=== PATIENT | male | born 1955 | race Caucasian/White ===

== ENCOUNTER 2023-03-02 08:17 | Day surgery (SDC) | payer MEDICARE, SELFPAY ==
[2023-03-02] VITALS (8 sets, daily range): BP systolic 106–147; BP diastolic 68–89; PULSE 76–86; RESP 15–18; TEMP 36.5–36.8; O2SAT 93–98; BMI 27.0
[2023-03-02] MEDS: Lactated Ringers 1,000 ML 80 ML IV (08:59)
--- NOTE | 2023-03-02 09:17 | ANES.PREOP_ITS ---
General Info Date of Service Date Performed: 03/02/23 Height: 5 ft 7 in Weight: 78.3 kg Body Mass Index (BMI): 27.0 Surgical Procedure: Operation Date: 03/02/23 09:55 Proposed Procedure Side Surgeon p Micro Laryngoscopy with bilateral vocal cord biopsy Maurice Narvaez MD Meds Allergies and Home Medications Allergies Allergy/AdvReac Type Severity Reaction Status Date / Time atorvastatin Allergy Unknown Verified 03/02/23 08:48 Home Medication Medication Instructions Recorded betamethasone, augmented 0.05 % 15 g topical PRN PRN 08/05/16 topical ointment ibuprofen 200 mg capsule 200 mg PO PRN PRN 08/05/16 omeprazole 40 mg capsule,delayed 40 mg PO DAILY 08/05/16 release aspirin 81 mg chewable tablet 81 mg PO DAILY 08/06/16 (Aspirin Low-Strength) ibuprofen 600 mg tablet 600 mg PO Q6H #40 tabs 08/08/16 albuterol sulfate 90 mcg/actuation 2 puff inhalation Q3H PRN 11/25/22 aerosol inhaler ammonium lactate 12 % topical cream 1 applic topical BID 11/25/22 dexcom transmitter See Rx Instructions .Route 11/25/22 DIRECTED dulaglutide 3 mg/0.5 mL 3 mg subcut QWEEK 11/25/22 subcutaneous pen injector (Trulicity) hydrocodone 7.5 mg-acetaminophen 1 tab PO Q4H PRN 12/01/22 325 mg tablet ([place]) insulin glargine 100 unit/mL (3 35 unit subcut HS 12/01/22 mL) subcutaneous pen (Lantus Solostar U-100 Insulin) Current Visit Medications: Current Medications Generic Name Dose Route Start Last Admin Trade Name Freq PRN Reason Stop Dose Admin Ringer's Solution 1,000 mls @ 80 mls/hr 03/02/23 06:00 03/02/23 08:59 IV 03/29/23 23:59 80 mls/hr INFUSION JAYESH Administration Tranexamic Acid 1,000 mg/ 60 mls @ 360 mls/hr 03/02/23 06:00 Sodium Chloride IVPB 03/02/23 18:00 PREOP JAYESH IV Miscellaneous Supplies 1 each 03/02/23 06:00 Iv Access IV 03/29/23 23:59 DIRECTED JAYESH Sodium Chloride 0 ml 03/02/23 06:00 Normal Saline Flush 10 Ml Syr IV 03/29/23 23:59 PRN PRN Sodium Chloride 0 ml 03/02/23 06:00 Normal Saline 10 Ml Vial IJ 03/29/23 23:59 DIRECTED PRN Sterile Water 0 ml 03/02/23 06:00 Water,Injection,Sterile 10 Ml Vial IJ 03/29/23 23:59 DIRECTED PRN PFSH Active Problems Active Problems: Problem Status Onset Code Emphysema lung J43.9 Hoarseness of voice R49.0 Weakness of voice R49.8 Pulmonary nodules R91.8 Type 2 diabetes mellitus E11.9 Strain of shoulder S46.919A Shoulder joint pain M25.519 Secondary polycythemia D75.1 Right upper quadrant pain R10.11 Paronychia of finger L03.019 Pain in right knee M25.561 Pain, joint, shoulder, left M25.512 Pain in right foot M79.671 Olecranon bursitis M70.20 Nicotine dependence F17.200 Myalgia M79.10 Lesion of ulnar nerve G56.20 Insomnia G47.00 Hyperplasia of prostate N40.0 Hyperlipidemia E78.5 GERD with esophagitis K21.00 Essential hypertension I10 Dyslipidemia due to type 2 diabetes mellitus E11.69, E78.5 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 Degeneration, intervertebral disc, cervical M50.30 Constipation K59.00 Chronic hoarseness R49.0 Cervical radiculopathy M54.12 Carpal tunnel syndrome, bilateral G56.03 Atopic dermatitis L20.9 Atherosclerosis I70.90 Arthritis M19.90 Allergic rhinitis J30.9 Hallux valgus (acquired) M20.10 Medical History Medical History (Updated 03/02/23 @ 08:26 by Flaquita Stanton MD) Chronic obstructive lung disease Bunion Acquired hallux valgus of right foot Nonspecific abdominal symptom Cellulitis of right upper limb Surgical History Surgical History Hx of hammer toe correction Hx of arthroscopy of shoulder Hx of cataract surgery History of colonoscopy Hx laparoscopic cholecystectomy History of carpal tunnel release Hammer toe Right 5th hammer toe surgery. Tobacco Smoking/Tobacco Use Status: Current every day Tobacco Type: cigarettes Alcohol Alcohol Intake: never Substance Use Substance use: Never Substance use type: does not use Vital Signs and Lab Results Vital Signs Most Recent Vital Signs in EMR: Most Recent Vital Signs Temp Pulse Resp BP Pulse Ox 36.5 C 78 16 106/82 96 03/02/23 08:36 03/02/23 08:36 03/02/23 08:36 03/02/23 08:36 03/02/23 08:36 Lab Results Blood Type / Crossmatch: No Data to Display Complete Blood Count: No Data to Display Complete Metabolic Panel: No Data to Display Liver Function Panel: No Data to Display Coagulation Panel: No Data to Display Cardiac Panel: No Data to Display Arterial Blood Gas: No Data to Display Venous Blood Gas: No Data to Display Pancreas Panel: No Data to Display Thyroid Panel: No Data to Display Infectious Disease: No Data to Display Blood Cultures: No Data to Display Toxicology Panel: No Data to Display Anesthesia Assessment and Plan Anesthesia History Personal History: No History of Anesthesia Complications Family History: No Family History of Anesthesia Complications Exercise Tolerance Exercise Tolerance: Metabolic Equivalents>4 Pertinent Negatives Pertinent Negatives: No Symptoms of GERD, No Major Cardiovascular Symptoms or Complaints and No Major Pulmonary Symptoms or Complaints Cardiac & Pulmonary Exam Cardiac Exam: Normal S1/S2 Heart Sounds Pulmonary Exam: Wheezing Present Implantable Cardiac Device Does patient have a Pacemaker or an ICD?: No Airway Exam Known Difficult Airway: No Mallampati Class: 2 Mouth Opening: Normal (> 3cm) Thyromental Distance: Greater than 3 cm Neck Range of Motion: Full ROM Neck Circumference: Normal Teeth Condition: Edentulous ASA Classification ASA Score: ASA 3 Emergency Case?: No NPO Status NPO Status: NPO Clears >2 hours, Solids >8 hours Anesthesia Plan Resuscitation Status: Full Code Anesthesia Technique: General Anesthesia Airway Planned: Endotracheal Tube Monitors Used: Standard Monitors
--- NOTE | 2023-03-02 09:24 | PDOC.DSDIS_ITS ---
Date of service: 03/02/23 Time of Service: 09:24 Discharge Plan Disposition Patient Disposition: Home Condition: Good Discharge Details Reason For Visit: Microlaryngoscopy with biopsy Attending Provider: Maurice Narvaez Primary Care Provider: Nicolás Escobar [place] Meds and New Rx's Prescriptions: No Action hydrocodone-acetaminophen [[place]] 7.5-325 mg tablet 1 tab PO Q4H PRN albuterol sulfate 90 mcg/actuation HFA aerosol inhaler 2 puff inhalation Q3H PRN ammonium lactate 12 % cream 1 applic topical BID dexcom transmitter See Rx Instructions .ROUTE DIRECTED Rx Instructions: as directed; Trulicity 3 mg/0.5 mL pen injector 3 mg subcut QWEEK ibuprofen 200 MG capsule 200 mg PO PRN PRN omeprazole 40 MG capsule,delayed release(DR/EC) 40 mg PO DAILY betamethasone, augmented 15 GM ointment 15 g Topical PRN PRN aspirin [Aspirin Low-Strength] 81 MG tablet,chewable 81 mg PO DAILY ibuprofen 600 MG tablet 600 mg PO Q6H Qty: 40 1RF insulin glargine [Lantus Solostar U-100 Insulin] 100 unit/mL (3 mL) insulin pen 35 unit subcut HS Discharge Instructions Additional Instructions: My cell phone number is [phone]. Please call with any questions or concerns. If you feel it is an emergency and you are unable to reach me, please proceed to the emergency room or call 911. You may use ibuprofen or Tylenol for any discomfort. You should not drive or operate any dangerous equipment for at least 2 days. You should not smoke. You should avoid shouting or whispering. He should maintain good hydration. You may resume your preoperative diet. You should check your blood sugars routinely and if they are not well controlled, call your primary care provider or whomever is managing your diabetes. You are to call my office if you do not hear from me within 7 days with regard to pathology results. My office number is [phone]. Follow-up will be determined based on what the pathology reveals. Discharge Orders Discharge Orders: Discharge Order (Routine); Ordered 03/02/23 Ordered By: Maurice Narvaez
--- NOTE | 2023-03-02 09:28 | W.PM.OP ---
Date of service: 03/02/23 Time of Service: 10:12 Operative Note Operative Note DATE OF PROCEDURE: 03/02/23 PRE-OP DIAGNOSIS: Hoarseness, vocal cord mass-bilateral POST-OP DIAGNOSIS: same PROCEDURE: Microlaryngoscopy with biopsy-bilateral SURGEON: Maurice Narvaez Refer to Anesthesia Record PATHOLOGY: other (Left vocal cord biopsy, right vocal cord biopsy, sent separately) COMPLICATIONS: None Patient was transported to: PACU Indications: Patient with the above problems. Options were explained to family regarding further management. He and his partner elected to undergo the above procedure. Consent was filled out and signed prior to surgery. H&P was reviewed. There have been no changes. He had received medical clearance from his primary care provider. Findings: Left vocal cord mass not extending to the anterior commissure, but extending into the left ventricle and into the subglottis. This is friable, and nonobstructive. There is no ulceration. There is no obvious necrosis. Right vocal cord mass, irregular, friable, not extending into the ventricle, but it does extend into the subglottic space. Nonobstructive. Not extending to the anterior commissure, no necrosis. No other masses or lesions noted. Procedure Description: After obtaining an adequate level of general endotracheal anesthesia the patient was positioned in supine position and prepped and draped in appropriate fashion. A Holinger laryngoscope was carefully introduced in the oral cavity advanced into the larynx to afford a view of the glottis. This was then placed in suspension and an operating microscope with a 400 mm lens was moved into position. Under magnification, biopsies were removed bilaterally from both vocal cord masses. The anterior commissure was not damaged. Once this was accomplished, the laryngoscope was withdrawn, with no obvious masses or lesions noted elsewhere within the pharynx, tongue base, or larynx. The patient was then awakened and extubated by anesthesia and taken to recovery room in stable condition. I was present for the throughout the entire case
--- NOTE | 2023-03-02 10:02 | VOCCOR_PTH ---
PATIENT: Jaden Alba LOC: [facility] U#:[id number] AGE/SX: 67/M ROOM: RE03/02/[address]: Maurice Narvaez MD : [id number] BED: DIS: 03/02/2023 SPEC #: [id number] RECD: 03/02/23 12:48 STATUS: JUDIE REQ #: [id number] JOZEF: 03/02/23 10:[address]: Maurice Narvaez DEPT: Surgical Specimen RECD BY: Zuleyma Jones ENTERED: 03/02/23 12:48 SP TYPE: VOCCOR OTHR DR: Nicolás Escobar Tissues: 1 - VOCAL CORD 2 - VOCAL CORD Procedures: GROSS AND MICRO LEVEL 4 Comments: [id number]
--- NOTE | 2023-03-02 10:46 | W.ANESPOSTOP ---
Postoperative Evaluation Date, Time and Location Date Performed: 03/02/23 Time Performed: 10:46 Patient Location: Day Surgery Unit Vital Signs Most Recent Imported Vital Signs: Most Recent Vital Signs Temp Pulse Resp BP Pulse Ox 36.8 C 86 15 147/72 H 95 03/02/23 10:21 03/02/23 10:31 03/02/23 10:31 03/02/23 10:31 03/02/23 10:31 Pain Score Most Recent Pain Score: Most Recent Pain Score Pain Level 0 03/02/23 10:31 Assessment Mental Status: Awake (Alert & Oriented to Patient Baseline) Airway and Respiratory Function: Patent airway with normal (patient baseline) respiratory exam Cardiovascular Function: Hemodynamically Stable Hydration Status: Adequately Hydrated Nausea & Vomiting: No Nausea or Vomiting Pain: Pt. Denies Any Pain Peripheral Nerve Block: Patient did not receive a nerve block
== END 2023-03-02 11:40 | disposition home or self-care (01) ==
PROVIDERS: PCP Neuromusculoskeletal Medicine & OMM; Visit Provider Otolaryngology
PROC: 0CJS8ZZ Inspection of Larynx, Via Natural or Artificial Opening Endoscopic (ICD-10-PCS; CPT 31575; principal; 2023-03-02 09:45)
DX: R49.0 Dysphonia (principal); C32.0 Malignant neoplasm of glottis
CPT/HCPCS: 31536; 88305; J1100; J2001; J2405; J2704; J3010

== ENCOUNTER → 2023-03-03 09:31 | Outpatient (BNVA) | payer MEDICARE, SELFPAY | PROVIDERS: PCP Neuromusculoskeletal Medicine & OMM; Referring Provider Neuromusculoskeletal Medicine & OMM; Visit Provider Student in an Organized Health Care Education/Training Program ==

== ENCOUNTER → 2023-03-10 13:11 | Outpatient (BNVA) | payer MEDICARE, SELFPAY | PROVIDERS: PCP Neuromusculoskeletal Medicine & OMM; Referring Provider Neuromusculoskeletal Medicine & OMM; Visit Provider Student in an Organized Health Care Education/Training Program | DX: R91.8 Other nonspecific abnormal finding of lung field (principal); F17.210 Nicotine dependence, cigarettes, uncomplicated; J43.9 Emphysema, unspecified; Z79.899 Other long term (current) drug therapy; C32.9 Malignant neoplasm of larynx, unspecified | CPT/HCPCS: 99214 ==

== ENCOUNTER 2023-04-27 11:50 | Outpatient (CLI) | payer MEDICARE, SELFPAY ==
[2023-04-27 11:09] LABS: Abs Immature Grans 0.02 10^3/uL (0.0-0.06); Absolute Basophil Count 0.08 10^3/uL (0.0-0.2); Absolute Eosinophil Count 0.39 10^3/uL (0.0-0.7); Absolute Lymphocyte Count 1.66 10^3/uL (1.2-3.4); Absolute Monocyte Count 0.47 10^3/uL (0.1-0.8); Absolute Neutrophil Count 3.75 10^3/uL (1.2-6.7); Basophils % 1.3; Eosinophils % 6.1; HCT 41.4 % (40.0-50.0); HGB 13.4 g/dL (13.5-17.5); Immature Grans % 0.3; Lymphocytes % 26.1; MCH 28.2 pg (27.0-33.0); MCHC 32.4 % (32.0-36.0); MCV 87 fL (80-95); MPV 9.2 fL (8.0-11.0); Monocytes % 7.4; Neutrophils % 58.8; Platelet Count 286 10^3/uL (130-400); RBC 4.75 10^6/uL (4.36-5.78); RDW 13.8 % (11.8-14.1); RDW-SD 44.1 fL; WBC 6.37 10^3/uL (4.4-10.8)
[2023-04-27 11:33] LABS: ALT 20 U/L (16-63); AST 13 U/L (15-37); Albumin 3.5 g/dL (3.4-5.0); Alkaline Phosphatase 64 U/L (46-116); Anion Gap 8.6 mmol/L (3-11); BUN 21 mg/dL (7-18); Bilirubin, Total 0.3 mg/dL (0.2-1.0); CO2 28.4 mmol/L (21.0-32.0); CREATININE 0.9 mg/dL (0.70-1.30); Chloride 102 mmol/L (98-107); Estimated GFR 94.19 (mL/min/1.73m2); Glucose 99 mg/dL (74-106); Potassium 4.2 mmol/L (3.5-5.1); Sodium 139 mmol/L (136-145); Total Protein 7.4 g/dL (6.4-8.2)
== END 2023-04-27 11:51 | disposition home or self-care (01) ==
LOC: LBO 11:50
PROVIDERS: PCP Neuromusculoskeletal Medicine & OMM; Visit Provider Nurse Practitioner
DX: C32.9 Malignant neoplasm of larynx, unspecified (principal)
CPT/HCPCS: 36415; 80053; 83735; 85025

== ENCOUNTER 2023-06-08 03:06 | Outpatient (RCR) | payer MEDICARE, SELFPAY ==
[2023-05-12] MEDS: Normal Saline Flush 10 ML SYR IVP (10:34)
[2023-05-12 10:43] LABS: Abs Immature Grans 0.03 10^3/uL (0.0-0.06); Absolute Basophil Count 0.06 10^3/uL (0.0-0.2); Absolute Lymphocyte Count 1.24 10^3/uL (1.2-3.4); Absolute Monocyte Count 0.55 10^3/uL (0.1-0.8); Absolute Neutrophil Count 5.58 10^3/uL (1.2-6.7); Basophils % 0.8; Eosinophils % 6.3; HCT 38.1 % (40.0-50.0); HGB 12.2 g/dL (13.5-17.5); Immature Grans % 0.4; Lymphocytes % 15.6; MCH 28.4 pg (27.0-33.0); MCV 89 fL (80-95); MPV 9.5 fL (8.0-11.0); Monocytes % 6.9; Platelet Count 352 10^3/uL (130-400); RDW 13.7 % (11.8-14.1); WBC 7.96 10^3/uL (4.4-10.8)
[2023-05-12 11:08] LABS: ALT 18 U/L (16-63); AST 11 U/L (15-37); Albumin 3.1 g/dL (3.4-5.0); Alkaline Phosphatase 77 U/L (46-116); Anion Gap 6.5 mmol/L (3-11); BUN 25 mg/dL (7-18); Bilirubin, Total 0.3 mg/dL (0.2-1.0); CO2 30.5 mmol/L (21.0-32.0); CREATININE 0.9 mg/dL (0.70-1.30); Calcium 9.3 mg/dL (8.5-10.1); Chloride 100 mmol/L (98-107); Estimated GFR 94.19 (mL/min/1.73m2); Glucose 210 mg/dL (74-106); Magnesium 1.7 mg/dL (1.8-2.4); Potassium 4.5 mmol/L (3.5-5.1); Sodium 137 mmol/L (136-145); Total Protein 7.5 g/dL (6.4-8.2)
[2023-05-18] MEDS: Normal Saline Flush 10 ML SYR IVP (09:28)
[2023-05-18 09:53] LABS: Abs Immature Grans 0.03 10^3/uL (0.0-0.06); Absolute Basophil Count 0.05 10^3/uL (0.0-0.2); Absolute Eosinophil Count 0.39 10^3/uL (0.0-0.7); Absolute Lymphocyte Count 0.81 10^3/uL (1.2-3.4); Absolute Monocyte Count 0.51 10^3/uL (0.1-0.8); Absolute Neutrophil Count 6.72 10^3/uL (1.2-6.7); Basophils % 0.6; Eosinophils % 4.6; HCT 37.4 % (40.0-50.0); HGB 12.1 g/dL (13.5-17.5); Immature Grans % 0.4; Lymphocytes % 9.5; MCH 28.6 pg (27.0-33.0); MCHC 32.4 % (32.0-36.0); MCV 88 fL (80-95); Neutrophils % 78.9; Platelet Count 342 10^3/uL (130-400); RBC 4.23 10^6/uL (4.36-5.78); RDW 13.6 % (11.8-14.1); RDW-SD 44.1 fL; WBC 8.51 10^3/uL (4.4-10.8)
[2023-05-18 10:05] LABS: ALT 16 U/L (16-63); AST 10 U/L (15-37); Albumin 3.1 g/dL (3.4-5.0); Alkaline Phosphatase 84 U/L (46-116); Anion Gap 4.3 mmol/L (3-11); BUN 24 mg/dL (7-18); Bilirubin, Total 0.4 mg/dL (0.2-1.0); CO2 29.7 mmol/L (21.0-32.0); CREATININE 0.9 mg/dL (0.70-1.30); Calcium 8.6 mg/dL (8.5-10.1); Chloride 101 mmol/L (98-107); Estimated GFR 94.19 (mL/min/1.73m2); Glucose 170 mg/dL (74-106); Magnesium 1.7 mg/dL (1.8-2.4); Potassium 4.8 mmol/L (3.5-5.1); Sodium 135 mmol/L (136-145); Total Protein 7.2 g/dL (6.4-8.2)
[2023-05-25] MEDS: Normal Saline Flush 10 ML SYR IVP (09:49)
[2023-05-25 10:02] LABS: Abs Immature Grans 0.01 10^3/uL (0.0-0.06); Absolute Basophil Count 0.05 10^3/uL (0.0-0.2); Absolute Eosinophil Count 0.37 10^3/uL (0.0-0.7); Absolute Lymphocyte Count 0.79 10^3/uL (1.2-3.4); Absolute Monocyte Count 0.44 10^3/uL (0.1-0.8); Absolute Neutrophil Count 2.98 10^3/uL (1.2-6.7); Basophils % 1.1; HCT 34.4 % (40.0-50.0); HGB 11.4 g/dL (13.5-17.5); Immature Grans % 0.2; MCH 29.3 pg (27.0-33.0); MCHC 33.1 % (32.0-36.0); MCV 88 fL (80-95); MPV 9.2 fL (8.0-11.0); Monocytes % 9.5; Neutrophils % 64.2; Platelet Count 270 10^3/uL (130-400); RBC 3.89 10^6/uL (4.36-5.78); RDW 14.1 % (11.8-14.1); RDW-SD 44.7 fL; WBC 4.64 10^3/uL (4.4-10.8)
[2023-05-25 11:01] LABS: ALT 17 U/L (16-63); AST 11 U/L (15-37); Albumin 3.1 g/dL (3.4-5.0); Alkaline Phosphatase 79 U/L (46-116); Anion Gap 6.5 mmol/L (3-11); BUN 19 mg/dL (7-18); Bilirubin, Total 0.3 mg/dL (0.2-1.0); CO2 30.5 mmol/L (21.0-32.0); CREATININE 0.9 mg/dL (0.70-1.30); Calcium 9.1 mg/dL (8.5-10.1); Chloride 102 mmol/L (98-107); Estimated GFR 94.19 (mL/min/1.73m2); Glucose 146 mg/dL (74-106); Magnesium 1.7 mg/dL (1.8-2.4); Potassium 4.6 mmol/L (3.5-5.1); Sodium 139 mmol/L (136-145); Total Protein 7.1 g/dL (6.4-8.2)
[2023-06-01] MEDS: Normal Saline Flush 10 ML SYR IVP (07:54)
[2023-06-01 08:20] LABS: Abs Immature Grans 0.01 10^3/uL (0.0-0.06); Absolute Basophil Count 0.03 10^3/uL (0.0-0.2); Absolute Eosinophil Count 0.14 10^3/uL (0.0-0.7); Absolute Lymphocyte Count 0.56 10^3/uL (1.2-3.4); Absolute Monocyte Count 0.39 10^3/uL (0.1-0.8); Basophils % 0.9; Eosinophils % 4.2; HCT 32.5 % (40.0-50.0); HGB 10.9 g/dL (13.5-17.5); Immature Grans % 0.3; Lymphocytes % 16.8; MCH 29.4 pg (27.0-33.0); MCHC 33.5 % (32.0-36.0); MCV 88 fL (80-95); MPV 9.2 fL (8.0-11.0); Monocytes % 11.7; Neutrophils % 66.1; Platelet Count 194 10^3/uL (130-400); RBC 3.71 10^6/uL (4.36-5.78); RDW 14.5 % (11.8-14.1); RDW-SD 44.8 fL; WBC 3.33 10^3/uL (4.4-10.8)
[2023-06-01 08:36] LABS: ALT 13 U/L (16-63); AST 11 U/L (15-37); Albumin 3.1 g/dL (3.4-5.0); Alkaline Phosphatase 77 U/L (46-116); Anion Gap 7.3 mmol/L (3-11); BUN 21 mg/dL (7-18); Bilirubin, Total 0.4 mg/dL (0.2-1.0); CO2 28.7 mmol/L (21.0-32.0); CREATININE 0.9 mg/dL (0.70-1.30); Calcium 8.7 mg/dL (8.5-10.1); Chloride 101 mmol/L (98-107); Estimated GFR 94.19 (mL/min/1.73m2); Glucose 183 mg/dL (74-106); Magnesium 1.5 mg/dL (1.8-2.4); Potassium 4.3 mmol/L (3.5-5.1); Sodium 137 mmol/L (136-145)
[2023-06-08] MEDS: Normal Saline Flush 10 ML SYR IVP (08:01)
[2023-06-08 08:17] LABS: Abs Immature Grans 0.01 10^3/uL (0.0-0.06); Absolute Basophil Count 0.02 10^3/uL (0.0-0.2); Absolute Eosinophil Count 0.06 10^3/uL (0.0-0.7); Absolute Lymphocyte Count 0.32 10^3/uL (1.2-3.4); Absolute Neutrophil Count 1.38 10^3/uL (1.2-6.7); Basophils % 0.9; Eosinophils % 2.7; HGB 10.5 g/dL (13.5-17.5); Immature Grans % 0.5; Lymphocytes % 14.6; MCH 29.7 pg (27.0-33.0); MCHC 33.9 % (32.0-36.0); MCV 88 fL (80-95); Monocytes % 18.3; Platelet Count 223 10^3/uL (130-400); RBC 3.54 10^6/uL (4.36-5.78); RDW 14.6 % (11.8-14.1); RDW-SD 45.4 fL; WBC 2.19 10^3/uL (4.4-10.8)
[2023-06-08 08:41] LABS: ALT 15 U/L (16-63); AST 11 U/L (15-37); Albumin 2.9 g/dL (3.4-5.0); Alkaline Phosphatase 78 U/L (46-116); Anion Gap 7.7 mmol/L (3-11); BUN 24 mg/dL (7-18); Bilirubin, Total 0.5 mg/dL (0.2-1.0); CO2 27.3 mmol/L (21.0-32.0); CREATININE 1.1 mg/dL (0.70-1.30); Chloride 101 mmol/L (98-107); Estimated GFR 74.04 (mL/min/1.73m2); Glucose 255 mg/dL (74-106); Magnesium 1.7 mg/dL (1.8-2.4); Potassium 4.7 mmol/L (3.5-5.1); Sodium 136 mmol/L (136-145); Total Protein 7.3 g/dL (6.4-8.2)
== END 2023-06-10 23:59 | disposition home or self-care (01) ==
LOC: INF 03:06
PROVIDERS: PCP Neuromusculoskeletal Medicine & OMM; Visit Provider Nurse Practitioner
DX: C32.9 Malignant neoplasm of larynx, unspecified (principal); Z45.2 Encounter for adjustment and management of vascular access device
CPT/HCPCS: 36591; 80053; 83735; 85025

== ENCOUNTER 2023-07-06 03:50 | Outpatient (RCR) | payer MEDICARE, SELFPAY ==
[2023-06-15 12:17] LABS: Abs Immature Grans 0.01 10^3/uL (0.0-0.06); Absolute Basophil Count 0.02 10^3/uL (0.0-0.2); Absolute Eosinophil Count 0.05 10^3/uL (0.0-0.7); Absolute Monocyte Count 0.82 10^3/uL (0.1-0.8); Absolute Neutrophil Count 1.32 10^3/uL (1.2-6.7); Basophils % 0.7; Eosinophils % 1.8; HCT 31.2 % (40.0-50.0); HGB 10.5 g/dL (13.5-17.5); Immature Grans % 0.4; Lymphocytes % 18.4; MCHC 33.7 % (32.0-36.0); MCV 89 fL (80-95); MPV 8.9 fL (8.0-11.0); Monocytes % 30.1; Neutrophils % 48.6; Platelet Count 399 10^3/uL (130-400); RDW 15.8 % (11.8-14.1); RDW-SD 50.4 fL; WBC 2.72 10^3/uL (4.4-10.8)
[2023-06-15 12:32] LABS: ALT 17 U/L (16-63); AST 9 U/L (15-37); Albumin 2.7 g/dL (3.4-5.0); Alkaline Phosphatase 69 U/L (46-116); Anion Gap 2.8 mmol/L (3-11); BUN 38 mg/dL (7-18); Bilirubin, Total 0.3 mg/dL (0.2-1.0); CO2 35.2 mmol/L (21.0-32.0); CREATININE 1.1 mg/dL (0.70-1.30); Calcium 9.2 mg/dL (8.5-10.1); Chloride 101 mmol/L (98-107); Estimated GFR 74.04 (mL/min/1.73m2); Glucose 105 mg/dL (74-106); Magnesium 2.2 mg/dL (1.8-2.4); Potassium 4.3 mmol/L (3.5-5.1); Sodium 139 mmol/L (136-145); Total Protein 7.6 g/dL (6.4-8.2)
[2023-06-15] MEDS: Normal Saline Flush 10 ML SYR IVP (12:51)
[2023-06-22 11:07] LABS: Abs Immature Grans 0.02 10^3/uL (0.0-0.06); Absolute Basophil Count 0.02 10^3/uL (0.0-0.2); Absolute Monocyte Count 0.85 10^3/uL (0.1-0.8); Absolute Neutrophil Count 4.29 10^3/uL (1.2-6.7); Basophils % 0.4; Eosinophils % 1.8; HCT 32.3 % (40.0-50.0); HGB 10.4 g/dL (13.5-17.5); Immature Grans % 0.4; MCH 29.5 pg (27.0-33.0); MCHC 32.2 % (32.0-36.0); MCV 92 fL (80-95); MPV 8.8 fL (8.0-11.0); Neutrophils % 75.4; Platelet Count 412 10^3/uL (130-400); RBC 3.53 10^6/uL (4.36-5.78); RDW 16.2 % (11.8-14.1); RDW-SD 53.5 fL; WBC 5.68 10^3/uL (4.4-10.8)
[2023-06-22 11:29] LABS: ALT 14 U/L (16-63); AST 11 U/L (15-37); Albumin 2.7 g/dL (3.4-5.0); Alkaline Phosphatase 87 U/L (46-116); BUN 39 mg/dL (7-18); Bilirubin, Total 0.3 mg/dL (0.2-1.0); Chloride 105 mmol/L (98-107); Estimated GFR 83.01 (mL/min/1.73m2); Glucose 55 mg/dL (74-106); Magnesium 2.2 mg/dL (1.8-2.4); Potassium 4.1 mmol/L (3.5-5.1); Sodium 144 mmol/L (136-145); Total Protein 7.2 g/dL (6.4-8.2)
[2023-06-22] MEDS: Normal Saline Flush 10 ML SYR IVP (11:34)
[2023-07-01] MEDS: Normal Saline Flush 10 ML SYR IVP (09:15)
[2023-07-01 09:59] LABS: Abs Immature Grans 0.02 10^3/uL (0.0-0.06); Absolute Basophil Count 0.02 10^3/uL (0.0-0.2); Absolute Eosinophil Count 0.08 10^3/uL (0.0-0.7); Absolute Lymphocyte Count 0.36 10^3/uL (1.2-3.4); Absolute Monocyte Count 0.54 10^3/uL (0.1-0.8); Absolute Neutrophil Count 3.38 10^3/uL (1.2-6.7); Basophils % 0.5; Eosinophils % 1.8; HCT 31.7 % (40.0-50.0); HGB 10.2 g/dL (13.5-17.5); Immature Grans % 0.5; Lymphocytes % 8.2; MCH 29.6 pg (27.0-33.0); MCHC 32.2 % (32.0-36.0); MCV 92 fL (80-95); MPV 9.5 fL (8.0-11.0); Monocytes % 12.3; Neutrophils % 76.7; Platelet Count 309 10^3/uL (130-400); RBC 3.45 10^6/uL (4.36-5.78); RDW 16.4 % (11.8-14.1); RDW-SD 54.9 fL
[2023-07-01 10:19] LABS: ALT 16 U/L (16-63); AST 12 U/L (15-37); Albumin 2.6 g/dL (3.4-5.0); Alkaline Phosphatase 86 U/L (46-116); Anion Gap 6.5 mmol/L (3-11); BUN 33 mg/dL (7-18); Bilirubin, Total 0.3 mg/dL (0.2-1.0); CO2 32.5 mmol/L (21.0-32.0); CREATININE 1.1 mg/dL (0.70-1.30); Calcium 8.9 mg/dL (8.5-10.1); Chloride 104 mmol/L (98-107); Estimated GFR 74.04 (mL/min/1.73m2); Glucose 150 mg/dL (74-106); Magnesium 1.8 mg/dL (1.8-2.4); Potassium 4.2 mmol/L (3.5-5.1); Sodium 143 mmol/L (136-145); Total Protein 6.9 g/dL (6.4-8.2)
== END 2023-07-09 23:59 | disposition home or self-care (01) ==
LOC: INF 03:50
PROVIDERS: PCP Neuromusculoskeletal Medicine & OMM; Visit Provider Nurse Practitioner
DX: C32.9 Malignant neoplasm of larynx, unspecified (principal); Z45.2 Encounter for adjustment and management of vascular access device
CPT/HCPCS: 36591; 80053; 83735; 85025

== ENCOUNTER 2023-07-20 11:16 | Outpatient (RCR) | payer MEDICARE, SELFPAY ==
[2023-07-20] MEDS: Normal Saline Flush 10 ML SYR IVP (11:27)
[2023-07-20 11:38] LABS: Abs Immature Grans 0.01 10^3/uL (0.0-0.06); Absolute Basophil Count 0.03 10^3/uL (0.0-0.2); Absolute Eosinophil Count 0.45 10^3/uL (0.0-0.7); Absolute Lymphocyte Count 0.55 10^3/uL (1.2-3.4); Absolute Monocyte Count 0.36 10^3/uL (0.1-0.8); Absolute Neutrophil Count 3.48 10^3/uL (1.2-6.7); Basophils % 0.6; Eosinophils % 9.2; HCT 31.3 % (40.0-50.0); HGB 10.1 g/dL (13.5-17.5); Immature Grans % 0.2; Lymphocytes % 11.3; MCH 30.4 pg (27.0-33.0); MCHC 32.3 % (32.0-36.0); MCV 94 fL (80-95); Monocytes % 7.4; Neutrophils % 71.3; Platelet Count 269 10^3/uL (130-400); RBC 3.32 10^6/uL (4.36-5.78); RDW 16.6 % (11.8-14.1); RDW-SD 57.5 fL; WBC 4.88 10^3/uL (4.4-10.8)
[2023-07-20 11:52] LABS: ALT 12 U/L (16-63); AST 9 U/L (15-37); Albumin 2.7 g/dL (3.4-5.0); Alkaline Phosphatase 82 U/L (46-116); Anion Gap 5.9 mmol/L (3-11); BUN 21 mg/dL (7-18); Bilirubin, Total 0.3 mg/dL (0.2-1.0); CO2 32.1 mmol/L (21.0-32.0); CREATININE 0.8 mg/dL (0.70-1.30); Calcium 8.9 mg/dL (8.5-10.1); Chloride 105 mmol/L (98-107); Glucose 139 mg/dL (74-106); Magnesium 1.5 mg/dL (1.8-2.4); Potassium 4.4 mmol/L (3.5-5.1); Sodium 143 mmol/L (136-145); Total Protein 6.5 g/dL (6.4-8.2)
== END 2023-08-09 23:59 | disposition home or self-care (01) ==
LOC: INF 11:16
PROVIDERS: PCP Neuromusculoskeletal Medicine & OMM; Visit Provider Nurse Practitioner
DX: C32.9 Malignant neoplasm of larynx, unspecified (principal); Z45.2 Encounter for adjustment and management of vascular access device
CPT/HCPCS: 36591; 80053; 83735; 85025

== ENCOUNTER → 2023-08-03 02:39 | Outpatient (CLI) | payer MEDICARE, SELFPAY ==
--- NOTE | 2023-08-03 09:20 | DI.RAD_ITS ---
Exam(s) RF MODIFIED SPEECH BA SWALLOW TECHNIQUE: Modified barium swallow was performed in conjunction with speech pathology. CONTRAST MATERIAL: Multiple consistencies of oral barium contrast were administered. COMPARISON: No exams were available for comparison FINDINGS: Note that this is not a dedicated esophagram, distal esophagus not evaluated. Aspiration was observed with thin and thick liquids. Speech pathology report to follow. IMPRESSION: Aspiration with thin and thick liquids. RADIATION DOSE DELIVERED: teodoro Young=5.03 mGy
[2023-08-03] MEDS: Barium Sulfate 40% W/V 1500 CPS 250 ML BTL PO (09:26)
[2023-08-03] MEDS: Barium Sulfate 40% W/V 240 ML BTL PO (09:27)
[2023-08-03] MEDS: Barium Sulfate Oral Paste 40% W/V 230 ML TUBE PO (09:27)
[2023-08-03] MEDS: Barium Sulfate 81% w/w for Oral Suspension 148 GM BTL PO (09:28)
--- NOTE | 2023-08-03 10:04 | ST.MBS ---
Date of Service Date of service: 08/03/23 Time of Service: 09:00 Modified Barium Swallow Study Findings: Video fluoroscopic Swallowing Evaluation (VFSE) / Modified Barium Swallow Study (MBSS) Speech Language Pathology Report Patient referred for VFSE/MBSS from Lilli Smith APRN, given dysphagia symptoms. 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 The patient did not wish to undergo total laryngectomy and completed chemoradiation treatment. His last Cisplatin was 06/01/23 (weeks 6 & 7 held due to ANC/progressive weakness) and his last radiation treatment was 06/24/23. Jaden had his PEG removed earlier this month, and is currently tolerating soft foods/thin liquids including soup, sandwiches (soft bread, bologna), chop suey, cream of wheat cereal, etc. He continues with dysgeusia as well as 'irritated throat' with need to avoid acidic foods which exacerbate the irritation. He is using baking soda/water rinse throughout the day to aid in saliva management and optimize oral hygiene. He has been seen by GARMENT MANUFACTURER/Leila Hilario throughout his treatment, with last visit on 07/01/23. Previous Imaging: No prior MBSS on record IMPRESSIONS: Jaden presents with moderate sensorimotor pharyngeal dysphagia, with primary impairments of: impaired laryngeal vestibule closure, question of acute vs chronic anatomical changes of the epiglottis (? swelling vs blunted stature- difficult to assess in fluoroscopy, will be better assessed at next ENT follow up), and reduced BOT retraction. See below for further breakdown of swallow physiology. There is mild coating in the pyriforms after the initial swallow with thin liquids, which then spills into the laryngeal vestibule immediately after the swallow. This occurred with trace quantity during single sips of thin and larger quantity during subsequent sips of thin, with a delayed but effective cough reflex when the bolus reached the vocal cords. With single sip of mildly thick liquids, a larger quantity of the bolus was aspirated during the swallow- a cough reflex was elicited though did not appear to successfully eject the bolus. Trial of a chin tuck was not effective, and perhaps even increased quantity of penetrated bolus. Single small sips was the most effective way at eliminating penetration/aspiration. With solids, there is no pharyngeal residue with pudding, though significant vallecular retention with soft solids (fig cordero) occupying majority of vallecular space. The patient's sensation of this residue is fully in tact, and he can clear with combination of throat clear and sip of thin liquid. Ultimately, swallow safety and efficiency are both impaired, though considering he is 5 weeks post completion of radiation treatment, overall his swallow function is quite functional. Patient appears to be at moderate risk for potential aspiration pneumonia and/or pulmonary compromise and low-moderate risk for malnutrition/dehydration. Anticipate risks can be mitigated with diet modification and aspiration precautions. He was highly receptive and insightful to all strategies provided- most of which he was already going. Swallow prognosis is good considering time since XRT completion, patient motivation/insight, and age. He is considered a good candidate for swallow rehabilitation - recommend ongoing [facility]MENT MANUFACT[facility] services. Specialist referrals:?N/A - recommend ongoing follow up with GARMENT MANUFACTURER RECOMMENDATIONS: Diet Texture Recommendation:? IDDSI LEVEL SOLIDS 6-Soft & Bite-Sized Solids. Add extra moisture/sauces/condiments. Chew food until 'applesauce' consistency before swallowing. LIQUIDS 0-Thin Liquids. Small, single sips. MEDICATIONS Cut as able or whole with spoonful of applesauce (if large) or thin liquid (if small) Diet texture modification is per patient's preference; please adjust diet textures at patient's discretion & collaboration with care team. Do not alter medications (e.g., cut)? without advice from your MD or pharmacist. Risk Management Strategies:? Small bites, approx 23mir06tg Small sips, approx 10 mL Multiple swallows per bolus to encourage clearance of pharyngeal stasis/residue Always have a drink with meals, take a sip every 2-3 bites Chew food until applesauce consistency- use sauces/condiments as well. Always have an easier to swallow side (eg mashed potatoes, whipped squash, puddings, etc) to optimize endurance. Consider liquid supplementation to optimize endurance/if recommended by repair manager Consider cutting pills in half and/or taking in spoonful of applesauce Control risk factors for aspiration pneumonia via (a) thorough oral hygiene & (b) maintaining physical mobility as tolerated PLAN: Therapy: Recommend subsequent outpatient session with GARMENT MANUFACTURER to review results of today's exam and develop treatment plan as appropriate. May consider the following: Oropharyngeal Exercises to target deficits noted in objective section above; Further Compensatory Strategy Training/Education in Risk Management Goals: [employer] C[employer] Developer Goal: Patient will be independent with aspiration precautions, diet modifications, and safe swallowing strategies in order to optimize hydration/nutrition and remain free from aspiration-related illness. Short Term Goal: Patient will verbalize/demonstrate safe swallowing strategies within the context of a snack. Patient will independently demonstrate HEP/pharyngocise with good return demonstration of the Effortful Swallow, Manju Maneuver. Follow-up exam: May benefit from repeat MBSS in 6 months pending symptom progression OBJECTIVE Videofluoroscopic Swallow Evaluation (VFSE/MBSS) was conducted in the lateral and [id number] projection by Speech-Language Pathologist, in collaboration with Radiologist, to evaluate oropharyngeal swallow function. Anatomic view under fluoroscopy: The epiglottis appears slightly larger in size and 'blunted' in stature- suspect acute vs chronic post radiation effects. This is difficult to assess with fluoroscopy and can be better assessed at next naso laryngoscopy. Otherwise, anatomic view is WFL. PO Barium Contrast Trials Oral barium water-soluble contrast was administered as follows: IDDSI Level 0 Varibar thin liquid (40% w/v) IDDSI Level 2 Varibar nectar thick/mildly thick liquid (40% w/v) IDDSI Level 4 Varibar pudding/pureed/extremely thick (40% w/v) IDDSI Level 6 Soft Solid: 1/2 fig cordero coated in 3 mL Varibar pudding MBSImP Component Scores: COMPONENT Scale SCORE 1 Lip closure (0-4) 0 Resulted in no labial escape 2 Hold Position (0-3) 0 Maintained a cohesive bolus between tongue to palatal seal 3 Bolus Preparation (0-4) 1 Resulted in slow prolonged chewing/mashing with complete re-collection 4 Bolus Transport (0-4) 0 Was with brisk tongue motion 5 Oral Residue (0-4) 0 Was not observed. There was complete oral clearance 6 Swallow Initiation (0-4) 2 Occurred as bolus head at posterior laryngeal surface of epiglottis 7 Soft Palate Elevation (0-4) 0 Resulted in no bolus between soft palate and the pharyngeal wall 8 Laryngeal Elevation (0-3) 0 Demonstrated complete superior movement of thyroid cartilage with complete approximation of arytenoids to epiglottic petiole 9 Anterior Hyoid Motion (0-2) 0 Demonstrated complete anterior movement 10 Epiglottic Movement (0-2) 1 Resulted in partial inversion 11 Laryngeal Closure (0-2) 1 Was incomplete with narrow a column of air/contrast in laryngeal vestibule 12 Pharyngeal Stripping Wave (0-2) 1 Was present, but diminished 13 Pharyngeal Contraction (0-3) 0 Was complete 14 PES Opening (0-3) 1 Demonstrated partial distension/partial duration, with partial obstruction of flow 15 Tongue Base Retraction (0-4) 2 Allowed a narrow column of contrast or air between the retracted tongue base and the posterior pharyngeal wall 16 Pharyngeal Residue (0-4) 2 Was a collection of residue within or on pharyngeal structures 17 Esophageal Clearance (0-4) 0 Was complete, with only a coating of contrast, if any Results: COMPONENT Scale SCORE 1 Oral Score (0-18) 3 2 Pharyngeal Score (0-29) 8 3 Esophageal Score (0-4) 0 Functional Oral Intake Scale: COMPONENT Scale SCORE 1 Pre-Study (1-7) 6 Total oral intake with no special preparation, but must avoid specific foods or liquid items 2 Post-Study (1-7) 6 Total oral intake with no special preparation, but must avoid specific foods or liquid items Penetration-Aspiration Scale: COMPONENT Scale SCORE 1 Thin liquid (1-8) 6 Contrast entered the airway, passed below the vocal folds, and was ejected into the larynx or out of the airway. 2 Marvel thick (1-8) 7 Contrast entered the airway, passed below the vocal folds, and was not ejected from the trachea despite effort. 3 Honey thick (1-8) NA 4 Pudding thick (1-8) 1 Contrast did not enter the airway 5 Cookie (1-8) 1 Contrast did not enter the airway Trialed Compensatory Strategies & Outcome: Maneuvers Successful (+) Unsuccessful (-) Postures Successful (+) Unsuccessful (-) 3 second Preparatory Set? ? Chin Tuck Posture? Unsuccessful at eliminating laryngeal penetration ? Cough? ? Posterior Head tilt? Reflexive? Partially successful ? Cued? Throat Clear? ? Head Tilt to? Reflexive? Left? Cued? Successful ? Right? ? Saliva swallow? ? Head Turn/Rotate to? ? Supraglottic Swallow? Left? ? Super-supraglottic Swallow? Right? ? Bolus Modifications Successful (+) Unsuccessful (-) Delivery/Alternating Consistencies ? Follow with Liquid Wash Successful ? Follow with Solid Bolus? Delivery/Via Straw? ? Reduced Volume? ? Reduced Rate of Intake? ? Increased Viscosity? ? Other:?? ? Thank you for allowing us to take part in this patient's care. Please feel free to contact the [facility] Speech Language Pathology Department with any questions/concerns.
== END ==
PROVIDERS: PCP Neuromusculoskeletal Medicine & OMM; Visit Provider Nurse Practitioner
DX: C32.9 Malignant neoplasm of larynx, unspecified (principal); R13.13 Dysphagia, pharyngeal phase
CPT/HCPCS: 92526; 74221

== ENCOUNTER 2023-08-28 01:42 | Outpatient (RCR) | payer MEDICARE, SELFPAY ==
[2023-08-28] MEDS: Normal Saline Flush 10 ML SYR IVP (09:08)
[2023-08-28 09:32] LABS: Abs Immature Grans 0.01 10^3/uL (0.0-0.06); Absolute Basophil Count 0.03 10^3/uL (0.0-0.2); Absolute Eosinophil Count 0.39 10^3/uL (0.0-0.7); Absolute Lymphocyte Count 0.46 10^3/uL (1.2-3.4); Absolute Monocyte Count 0.33 10^3/uL (0.1-0.8); Basophils % 0.8; Eosinophils % 10.8; HCT 34.2 % (40.0-50.0); HGB 11.3 g/dL (13.5-17.5); Immature Grans % 0.3; Lymphocytes % 12.7; MCH 31.7 pg (27.0-33.0); MCV 96 fL (80-95); MPV 9.1 fL (8.0-11.0); Monocytes % 9.1; Neutrophils % 66.3; Platelet Count 253 10^3/uL (130-400); RBC 3.56 10^6/uL (4.36-5.78); RDW-SD 46.1 fL; WBC 3.62 10^3/uL (4.4-10.8)
[2023-08-28 09:49] LABS: ALT 15 U/L (16-63); AST 9 U/L (15-37); Albumin 3.1 g/dL (3.4-5.0); Alkaline Phosphatase 77 U/L (46-116); Anion Gap 3.6 mmol/L (3-11); BUN 21 mg/dL (7-18); Bilirubin, Total 0.4 mg/dL (0.2-1.0); CO2 31.4 mmol/L (21.0-32.0); CREATININE 0.9 mg/dL (0.70-1.30); Chloride 107 mmol/L (98-107); Estimated GFR 93.61 (mL/min/1.73m2); Glucose 122 mg/dL (74-106); Magnesium 1.9 mg/dL (1.8-2.4); Potassium 4.1 mmol/L (3.5-5.1); Sodium 142 mmol/L (136-145); Total Protein 6.8 g/dL (6.4-8.2)
[2023-08-28 09:57] LABS: TSH 0.17 uIU/Ml (0.36-3.74)
== END 2023-09-08 23:59 | disposition home or self-care (01) ==
LOC: INF 01:42
PROVIDERS: Preventive Medicine Undersea and Hyperbaric Medicine; PCP Neuromusculoskeletal Medicine & OMM; Visit Provider Nurse Practitioner
DX: E03.8 Other specified hypothyroidism (principal); C32.9 Malignant neoplasm of larynx, unspecified; Z45.2 Encounter for adjustment and management of vascular access device
CPT/HCPCS: 36591; 80053; 83735; 84443; 85025

== ENCOUNTER 2024-02-01 02:12 | Outpatient (CLI) | payer MEDICARE, SELFPAY ==
--- NOTE | 2024-02-01 | DI.RAD_ITS ---
Exam(s) RF MODIFIED SPEECH BA SWALLOW TECHNIQUE: Modified barium swallow was performed in conjunction with speech pathology. CONTRAST MATERIAL: Oral barium contrast was administered. COMPARISON: No exams were available for comparison FINDINGS: Note that this is not a dedicated esophagram, distal esophagus not evaluated. There is no evidence of aspiration or penetration of thick liquid, barium pudding or barium coated co [place]. There did appear to be aspiration with thin liquids. Speech pathology report to follow. IMPRESSION: Aspiration was noted with thin liquids. RADIATION DOSE DELIVERED: teodoro Young=6.74 mGy
[2024-02-01] MEDS: Barium Sulfate 81% w/w for Oral Suspension 148 GM BTL 70 GM PO (10:06)
[2024-02-01] MEDS: Barium Sulfate 40% W/V 1500 CPS 250 ML BTL 60 ML PO (10:07)
[2024-02-01] MEDS: Barium Sulfate 40% W/V 240 ML BTL 60 ML PO (10:07)
[2024-02-01] MEDS: Barium Sulfate Oral Paste 40% W/V 230 ML TUBE 60 ML PO (10:08)
--- NOTE | 2024-02-01 12:10 | ST.MBS_ITS ---
Date of Service Date of service: 02/01/24 Time of Service: 09:45 Modified Barium Swallow Study Findings: Video fluoroscopic Swallowing Evaluation (VFSE) / Modified Barium Swallow Study (MBSS) Speech Language Pathology Report Patient referred for VFSE/MBSS from Dr. Blayne Sung secondary to dysphagia. HPI & Patient report of function: Patient is a 68 year old male with hx squamous cell carcinoma of the glottis, s/p chemoradiation therapy completed in June 2023. He opted out of a laryngectomy. Jaden is familiar to this clinician from prior outpatient MBSS on 08/03/23 (summary below). At that time he was eating soft and bite sized solids and thin liquids with strict aspiration precautions in place to mitigate risks for known silent aspiration. In December 2023 Jaden was admitted to [facility] due to difficulty managing secretions and was found to have soft tissue necrosis. A tracheostomy was placed (uncuffed 6 Shiley) and an MBSS was completed on 12/31/23 where he was recommended NPO except for sips of water/ice chips, with all nutrition/hydration via PEG. He was discharged home on 01/03/24. Jaden was re-admitted to [facility] on 01/09 due to feeling unwell and increase in O2 requirements. Workup revealed bilateral pneumonia as well as ongoing radionecrosis around tracheostomy site. His tracheostomy was found to be in a false anterior track creating a deep 1 cm pressure wound in the neck. This was ultimately packed by ENT and readjusted to correct positioning. He was discharged home on 01/18/24. It does not appear he was re-evaluated by [employer] [employer] services during this second admission and remained NPO except sips/chips. Since discharge home, Jaden has chosen to return to despite these recommendations, including meatloaf, muffins, pudding, coffee, water, etc. He is receiving nutrition via PEG 4x/daily, but states he is snacking/grazing orally throughout the day. [facility] [employer] requested urgent MBSS re-assessment in light of this to further guide therapy. Previous Imaging: MBSS at [facility] 08/03/23:Jaden presents with moderate sensorimotor pharyngeal dysphagia, with primary impairments of: impaired laryngeal vestibule closure, question of acute vs chronic anatomical changes of the epiglottis (? swelling vs blunted stature- difficult to assess in fluoroscopy, will be better assessed at next ENT follow up), and reduced BOT retraction. See below for further breakdown of swallow physiology. There is mild coating in the pyriforms after the initial swallow with thin liquids, which then spills into the laryngeal vestibule immediately after the swallow. This occurred with trace quantity during single sips of thin and larger quantity during subsequent sips of thin, with a delayed but effective cough reflex when the bolus reached the vocal cords. With single sip of mildly thick liquids, a larger quantity of the bolus was aspirated during the swallow- a cough reflex was elicited though did not appear to successfully eject the bolus. Trial of a chin tuck was not effective, and perhaps even increased quantity of penetrated bolus. Single small sips was the most effective way at eliminating penetration/aspiration. With solids, there is no pharyngeal residue with pudding, though significant vallecular retention with soft solids (fig cordero) occupying majority of vallecular space. The patient's sensation of this residue is fully in tact, and he can clear with combination of throat clear and sip of thin liquid. Ultimately, swallow safety and efficiency are both impaired, though considering he is 5 weeks post completion of radiation treatment, overall his swallow function is functional. Patient appears to be at moderate risk for potential aspiration pneumonia and/or pulmonary compromise and low-moderate risk for malnutrition/dehydration. Anticipate risks can be mitigated with diet modification and aspiration precautions. He was highly receptive and insightful to all strategies provided- most of which he was already going. Swallow prognosis is good considering time since XRT completion, patient motivation/insight, and age. He is considered a good candidate for swallow rehabilitation - recommend ongoing [facility] services. Flexible fiberoptic laryngoscopy 01/15: Epiglottis is edematous with post radiation changes, this is much improved compared to previous. The glottic larynx is able to be visualized. There is a scant area of necrosis along the left vocal cord. Piriform sinuses are clear edematous and obscurred by secretions. IMPRESSIONS: Jaden presents with moderate-severe sensorimotor pharygneal dysphagia with primary impairments of: impaired laryngeal vestibule closure with anatomical changes of the epiglottis, reduced BOT retraction, reduced hyolaryngeal elevation, and absent laryngeal cough reflex. With very small single sips of thin liquid, there is no penetration/aspiration/residue. With larger/typical size sip of thin liquid there is large quantity of the bolus entering the laryngeal vestibule during/immediately after the swallow- a portion is spontaneously ejected though there is quoc silent aspiration. When prompted to cough, the residue remaining in the laryngeal vestibule is mostly ejected. With mildly thick liquids, there is no penetration/aspiration on initial 2 trials. On the third trial- there is a small quantity of the bolus that spills into the laryngeal vestibule - ejected only when prompted to cough. With trial of pudding there is no penetration/aspiration or retention. With very small bite of fig cordero cookie, there is penetration into the laryngeal vestibule requiring prompt to cough to clear. Study reviewed with patient extensively at end of study- highlighting silent penetration/aspiration of liquids and crumbly solids. Reinforced [employer] role for supporting patient in making an informed decision in regards to taking PO, respe cting his decision, discussing benefits of PO to avoid disuse atrophy, though very high risks for recurrent pulmonary complication, especially with current PO texture intake. Provided strong recommendation and rationale re: avoiding solids beyond puree- with review of film to support. Recommendations below briefly reviewed with patient- to be provided in writing for [facility] for continuation of care. Positive prognostic factors: Cognitive status/insight Negative prognostic factors: Severity of deficits Patient appears to be a fair candidate for behavioral swallow rehabilitation. RECOMMENDATIONS: Continue PEG for primary nutrition/hydration. Recommend small amounts of the following for pleasure/therapeutic benefit, with strict aspiration precautions in place Diet Texture Recommendation:? SOLIDS IDDSI 4-Pureed Solids LIQUIDS - Very tiny, 5ML sips of thin liquid. Recommend FFW protocol. MEDICATIONS Non oral is strongly recommended- high risk for aspiration of meds. If oral medication required- recommend crushed in applesauce/pudding, very small single 1/2 tsp bite one at a time. Diet texture modification is per patient's preference; please adjust diet textures at patient's discretion & collaboration with care team. Do not alter medications (e.g., cut)? without advice from your MD or pharmacist. Risk Management Strategies:? Small bites, approx [id number] Very small sips, approx 5mL / teaspoon Encourage avoidance of straws Alternate solids/liquids as able Multiple swallows per bolus to encourage clearance of pharyngeal stasis/residue Intermittent cough/throat clear to clear pharyngeal residue every few bites/sips Control risk factors for aspiration pneumonia via (a) thorough oral hygiene & (b) maintaining physical mobility as tolerated PLAN: Therapy: Recommend subsequent [facility] to review results of today's exam and develop treatment plan as appropriate. May consider the following: Oropharyngeal Exercises to target deficits noted in objective section above Further Training/Education in Risk Management OBJECTIVE Videofluoroscopic Swallow Evaluation (VFSE/MBSS) was conducted in the lateral projection by Speech-Language Pathologist, in collaboration with Radiologist, to evaluate oropharyngeal swallow function. Anatomic view under fluoroscopy: WFL PO Barium Contrast Trials Oral barium water-soluble contrast was administered as follows: IDDSI Level 0 Varibar thin liquid (40% w/v) IDDSI Level 2 Varibar nectar thick/mildly thick liquid (40% w/v) IDDSI Level 4 Varibar pudding/pureed/extremely thick (40% w/v) IDDSI Level 6 Soft bite size Solid: bite of fig cordero in 3 mL Varibar pudding MBSImP Component Scores: COMPONENT Scale SCORE Previous SCORE 1 Lip closure (0-4) 0 Resulted in no labial escape 0 Resulted in no labial escape 2 Hold Position (0-3) 0 Maintained a cohesive bolus between tongue to palatal seal 0 Maintained a cohesive bolus between tongue to palatal seal 3 Bolus Preparation (0-4) 1 Resulted in slow prolonged chewing/mashing with complete re-collection 1 Resulted in slow prolonged chewing/mashing with complete re-collection 4 Bolus Transport (0-4) 0 Was with brisk tongue motion 0 Was with brisk tongue motion 5 Oral Residue (0-4) 1 Was a trace, lining oral structures 0 Was not observed. There was complete oral clearance 6 Swallow Initiation (0-4) 2 Occurred as bolus head at posterior laryngeal surface of epiglottis 2 Occurred as bolus head at posterior laryngeal surface of epiglottis 7 Soft Palate Elevation (0-4) 0 Resulted in no bolus between soft palate and the pharyngeal wall 0 Resulted in no bolus between soft palate and the pharyngeal wall 8 Laryngeal Elevation (0-3) 2 Was incomplete, with minimal superior movement of thyroid cartilage with minimal approximation of arytenoids to epiglottic petiole 0 Demonstrated complete superior movement of thyroid cartilage with complete approximation of arytenoids to epiglottic petiole 9 Anterior Hyoid Motion (0-2) 1 Demonstrated partial anterior movement 0 Demonstrated complete anterior movement 10 Epiglottic Movement (0-2) 2 Resulted in no inversion 1 Resulted in partial inversion 11 Laryngeal Closure (0-2) 1 Was incomplete with narrow a column of air/contrast in laryngeal vestibule 1 Was incomplete with narrow a column of air/contrast in laryngeal vestibule 12 Pharyngeal Stripping Wave (0-2) 1 Was present, but diminished 1 Was present, but diminished 13 Pharyngeal Contraction (0-3) NA 0 Was complete 14 PES Opening (0-3) 0 Was completely distended and complete duration with no obstruction of flow 1 Demonstrated partial distension/partial duration, with partial obstruction of flow 15 Tongue Base Retraction (0-4) 2 Allowed a narrow column of contrast or air between the retracted tongue base and the posterior pharyngeal wall 2 Allowed a narrow column of contrast or air between the retracted tongue base and the posterior pharyngeal wall 16 Pharyngeal Residue (0-4) 1 Showed a trace within or on pharyngeal structures 2 Was a collection of residue within or on pharyngeal structures 17 Esophageal Clearance (0-4) NA 0 Was complete, with only a coating of contrast, if any Results: COMPONENT Scale SCORE Previous SCORE 1 Oral Score (0-18) 2 3 2 Pharyngeal Score (0-29) 9 8 3 Esophageal Score (0-4) 0 0 Functional Oral Intake Scale: COMPONENT Scale SCORE Previous SCORE 1 Pre-Study (1-7) NA 6 Total oral intake with no special preparation, but must avoid specific foods or liquid items 2 Post-Study (1-7) 2 Tube dependent with minimal/inconsistent oral intake 6 Total oral intake with no special preparation, but must avoid specific foods or liquid items Penetration-Aspiration Scale: COMPONENT Scale SCORE Previous SCORE July 2023 1 Thin liquid (1-8) 8 Contrast entered the airway, passed below the vocal folds, and no effort was made to eject. 6 Contrast entered the airway, passed below the vocal folds, and was ejected into the larynx or out of the airway. 2 [place] thick (1-8) 8 Contrast entered the airway, passed below the vocal folds, and no effort was made to eject. 7 Contrast entered the airway, passed below the vocal folds, and was not ejected from the trachea despite effort. 3 Honey thick (1-8) NA NA 4 Pudding thick (1-8) 1 Contrast did not enter the airway 1 Contrast did not enter the airway 5 Cookie (1-8) 6 Contrast entered the airway, passed below the vocal folds, and was ejected into the larynx or out of the airway. 1 Contrast did not enter the airway Thank you for allowing us to take part in this patient's care. Please feel free to contact the [facility] Speech Language Pathology Department with any questions/concerns.
== END 2024-02-01 02:32 ==
LOC: DI 02:13
PROVIDERS: PCP Neuromusculoskeletal Medicine & OMM; Visit Provider Preventive Medicine Undersea and Hyperbaric Medicine
DX: C32.0 Malignant neoplasm of glottis (principal)
CPT/HCPCS: 92526; 74221

== ENCOUNTER 2024-03-14 01:30 | Outpatient (CLI) | payer MEDICARE, SELFPAY ==
--- NOTE | 2024-03-14 | DI.RAD_ITS ---
Exam(s) RF MODIFIED SPEECH BA SWALLOW TECHNIQUE: Modified barium swallow was performed in conjunction with speech pathology. CONTRAST MATERIAL: Oral barium contrast was administered. COMPARISON: RF RF MODIFIED SPEECH BA SWALLOW from 02/01/2024 FINDINGS: Note that this is not a dedicated esophagram, distal esophagus not evaluated. There is no evidence of aspiration or penetration of thick liquid, barium coated cookie or barium pud ding. Note is made of aspiration with thin liquids during the examination. Speech pathology report to follow. . . . IMPRESSION: Aspiration occurred with thin liquids during the examination. RADIATION DOSE DELIVERED: teodoro Young=7.24 mGy
--- NOTE | 2024-03-14 08:54 | ST.MBS ---
Date of Service Date of service: 03/14/24 Time of Service: 09:00 Modified Barium Swallow Study Findings: Video fluoroscopic Swallowing Evaluation (VFSE) / Modified Barium Swallow Study (MBSS) Speech Language Pathology Report Patient referred for VFSE/MBSS from Dr. Antony Sung given chronic dysphagia. 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 His initial MBSS at [facility] was completed in July 2023 which ultimately showed moderate sensorimotor pharyngeal dysphagia characterized by silent trace aspiration with thin liquids. He was recommended a Soft & Bite Size diet and thin liquids with strict aspiration precautions in place to mitigate risks for aspiration-related illness. Then in December 2023 Jaden was admitted to [facility] due to difficulty managing secretions. 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 MBSS completed 12/31/23 at [facility] recommended NPO except sips of water/ice chips with all nutrition/hydration via PEG. He as discharged home on 01/03/24 with home WORKFORCE SERVICES REPRESENTATIVE services. He as readmitted to [facility] 01/10/24 d/t increase in O2 requirements. Workup revealed bilateral pneumonia as well as ongoing radionecrosis around tracheostomy site. His tracheostomy was found to be in a false anterior track creating a deep 1 cm pressure wound in the neck. This was ultimately packed by ENT and readjusted to correct positioning. He was discharged home on 01/18/24. After discharge home, Jaden chose to return to PO despite NPO recommendations, including meatloaf/muffins/coffee/water/pudding/etc with supplemental PEG 4x/daily. 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 With very small single sips of thin liquid, there is no penetration/aspiration/residue. With larger/typical size sip of thin liquid there is large quantity of the bolus entering the laryngeal vestibule during/immediately after the swallow- a portion is spontaneously ejected though there is quoc silent aspiration. When prompted to cough, the residue remaining in the laryngeal vestibule is mostly ejected. With mildly thick liquids, there is no penetration/aspiration on initial 2 trials. On the third trial- there is a small quantity of the bolus that spills into the laryngeal vestibule - ejected only when prompted to cough. With trial of pudding there is no penetration/aspiration or retention. With very small bite of fig cordero cookie, there is penetration into the laryngeal vestibule requiring prompt to cough to clear. He was recommended L4 Puree diet and very small 5mL sips thin liquid. 03/14/24: Today, Jaden presents reporting he is using his PEG only for flushing and some protein supplementation once daily in the morning. He is gaining weight. He is eating all textures of foods- cream of wheat for breakfast, meat/sandwiches for lunch and dinner. He denies dysphagia concerns. He did complete exercises with [facility] WORK[employer]CE SERVICES REPRESENTATIVE. He is pending appt with [facility] otolaryngology tomorrow and is hoping to remove trach/PEG. 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 This results in consistent trace quantity penetration to the vocal cords with both thin and thick liquids during the swallow, which then appears to silently aspirate immediately after the swallow. This could not be eliminated with trials of chin tuck, supraglottic swallow, or thickened liquids. Cough reflex is not appreciated spontaneously and only partially effective when prompted. With solids, there is no pharyngeal residue or penetration. Oral phase is grossly WFL. Overall, swallow function is improved from last assessment 6 weeks ago. Jaden remains at heightened risk for aspiration-related illness. His risk for malnutrition/dehydration is low. 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 Thus, recommend ongoing WORKFORCE SERVICES REPRESENTATIVE intervention focus on continuation of therapeutic exercise as well as strategies to mitigate risks for aspiration related illness, including education re: oral care, pulmonary hygiene, diet modification, and dysphagia precautions as outlined below. These were verbally discussed with Jaden at time of study, though follow-up recommended for further reinforcement. In regards to readiness for PEG removal - no concerns for ability to meet nutritional/hydrational needs orally per MBSS. Consult with malted milk supervisor/weight gain. Jaden has expressed his priority is to continue eating/drinking by mouth regardless of aspiration risk- though agreeable to strategies to reduce risks. Positive prognostic factors: Age, Severity, Time since onset, Motivation Negative prognostic factors: Prognosis for post radiation dysphagia Patient appears to be a good candidate for behavioral swallow rehabilitation. RECOMMENDATIONS: Diet Texture Recommendation:? IDDSI LEVEL SOLIDS 6-Soft & Bite-Sized Solids - Add moisture to food to form cohesive bolus. Chew until applesauce consistency. Very small bites. LIQUIDS 0-Thin Liquids - 5mL single small sips MEDICATIONS Whole or cut in applesauce Diet texture modification is per patient's preference; please adjust diet textures at patient's discretion & collaboration with care team. Do not alter medications (e.g., cut)? without advice from your MD or pharmacist. Risk Management Strategies:? Small bites, approx [id number] Very small sips, approx 5mL / teaspoon Encourage avoidance of straws Diligent oral care: first thing in the morning before drinking/eating. Ideally before/after each meal. [place] upright for PO and at least 90 minutes after Control risk factors for aspiration pneumonia via (a) thorough oral hygiene & (b) maintaining physical mobility as tolerated PLAN: Therapy: Recommend subsequent outpatient session with WORKFORCE SERVICES REPRESENTATIVE to review results of today's exam and develop treatment plan as appropriate. May consider the following: Oropharyngeal Exercises to target deficits noted in objective section above Further Compensatory Strategy Training Further Training/Education in Risk Management Goals: OBJECTIVE Videofluoroscopic Swallow Evaluation (VFSE/MBSS) was conducted in the lateral projection by Speech-Language Pathologist, in collaboration with Radiologist, to evaluate oropharyngeal swallow function. 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 Otherwise WFL PO Barium Contrast Trials Oral barium water-soluble contrast was administered as follows: IDDSI Level 0 Varibar thin liquid (40% w/v) IDDSI Level 2 Varibar nectar thick/mildly thick liquid (40% w/v) IDDSI Level 3 Varibar thin honey/liquidised/moderately-thick (40% w/v) IDDSI Level 4 Varibar pudding/pureed/extremely thick (40% w/v) IDDSI Level 7 Regular Solid: 1/2 alanna cracker coated in 3 mL Varibar pudding MBSImP Component Scores: COMPONENT Scale SCORE Previous SCORE 1 Lip closure (0-4) 0 Resulted in no labial escape 0 Resulted in no labial escape 2 Hold Position (0-3) 0 Maintained a cohesive bolus between tongue to palatal seal 0 Maintained a cohesive bolus between tongue to palatal seal 3 Bolus Preparation (0-4) 1 Resulted in slow prolonged chewing/mashing with complete re-collection 1 Resulted in slow prolonged chewing/mashing with complete re-collection 4 Bolus Transport (0-4) 0 Was with brisk tongue motion 0 Was with brisk tongue motion 5 Oral Residue (0-4) 0 Was not observed. There was complete oral clearance 1 Was a trace, lining oral structures 6 Swallow Initiation (0-4) 3 Occurred when the bolus head was in the pyriform sinuses 1 Occurred when the bolus head was in valleculae 7 Soft Palate Elevation (0-4) 0 Resulted in no bolus between soft palate and the pharyngeal wall 0 Resulted in no bolus between soft palate and the pharyngeal wall 8 Laryngeal Elevation (0-3) 2 Was incomplete, with minimal superior movement of thyroid cartilage with minimal approximation of arytenoids to epiglottic petiole 2 Was incomplete, with minimal superior movement of thyroid cartilage with minimal approximation of arytenoids to epiglottic petiole 9 Anterior Hyoid Motion (0-2) 1 Demonstrated partial anterior movement 1 Demonstrated partial anterior movement 10 Epiglottic Movement (0-2) 1 Resulted in partial inversion 2 Resulted in no inversion 11 Laryngeal Closure (0-2) 1 Was incomplete with narrow a column of air/contrast in laryngeal vestibule 1 Was incomplete with narrow a column of air/contrast in laryngeal vestibule 12 Pharyngeal Stripping Wave (0-2) 1 Was present, but diminished 1 Was present, but diminished 13 Pharyngeal Contraction (0-3) 0 Was complete NA 14 PES Opening (0-3) 0 Was completely distended and complete duration with no obstruction of flow 0 Was completely distended and complete duration with no obstruction of flow 15 Tongue Base Retraction (0-4) 1 Allowed a trace column of contrast or air between tongue base and pharyngeal wall 2 Allowed a narrow column of contrast or air between the retracted tongue base and the posterior pharyngeal wall 16 Pharyngeal Residue (0-4) 0 Was not present. There was complete pharyngeal clearance 1 Showed a trace within or on pharyngeal structures 17 Esophageal Clearance (0-4) NA NA Results: COMPONENT Scale SCORE Previous SCORE 1 Oral Score (0-18) 4 2 2 Pharyngeal Score (0-29) 6 9 3 Esophageal Score (0-4) 0 0 Penetration-Aspiration Scale: COMPONENT Scale SCORE Previous SCORE 1 Thin liquid (1-8) 8 Contrast entered the airway, passed below the vocal folds, and no effort was made to eject. 8 Contrast entered the airway, passed below the vocal folds, and no effort was made to eject. 2 [place] thick (1-8) 5 Contrast entered the airway, contacted the vocal folds, and was not ejected from the airway. 8 Contrast entered the airway, passed below the vocal folds, and no effort was made to eject. 3 Honey thick (1-8) NA NA 4 Pudding thick (1-8) 1 Contrast did not enter the airway 1 Contrast did not enter the airway 5 Cookie (1-8) 1 Contrast did not enter the airway 6 Contrast entered the airway, passed below the vocal folds, and was ejected into the larynx or out of the airway. Trialed Compensatory Strategies & Outcome: Chin tuck, bolus hold, supraglottic swallow -- did not reduce/eliminate penetration/aspiration Thank you for allowing us to take part in this patient's care. Please feel free to contact the [facility] Speech Language Pathology Department with any questions/concerns.
[2024-03-14] MEDS: Barium Sulfate Oral Paste 40% W/V 230 ML TUBE PO (09:21)
[2024-03-14] MEDS: Barium Sulfate 81% w/w for Oral Suspension 148 GM BTL PO (09:21)
[2024-03-14] MEDS: Barium Sulfate 40% W/V 240 ML BTL PO (09:22)
[2024-03-14] MEDS: Barium Sulfate 40% W/V 1500 CPS 250 ML BTL PO (09:23)
== END 2024-03-14 01:50 ==
LOC: DI 01:30
PROVIDERS: PCP Neuromusculoskeletal Medicine & OMM; Visit Provider Preventive Medicine Undersea and Hyperbaric Medicine
DX: C32.0 Malignant neoplasm of glottis (principal); R13.13 Dysphagia, pharyngeal phase; Z92.3 Personal history of irradiation
CPT/HCPCS: 92526; 74221

== ENCOUNTER → 2024-11-28 12:56 | Outpatient (BNVA) | payer MEDICARE, SELFPAY | PROVIDERS: PCP Specialist/Technologist Athletic Trainer; Referring Provider Specialist/Technologist Athletic Trainer; Visit Provider Nurse Practitioner Adult Health | DX: G56.23 Lesion of ulnar nerve, bilateral upper limbs (principal); G56.03 Carpal tunnel syndrome, bilateral upper limbs; G62.9 Polyneuropathy, unspecified; E11.59 Type 2 diabetes mellitus with other circulatory complications; J44.9 Chronic obstructive pulmonary disease, unspecified; I10 Essential (primary) hypertension; Z72.0 Tobacco use | CPT/HCPCS: 99215; 95911 ==